=== PATIENT | male | born 1985 | race American Indian/Alaskan Native ===

== ENCOUNTER 2019-08-25 11:16 | Emergency (ER) | payer OTHER ==
[~2019-08-25] VITALS: Ht 185.4 cm; Wt 117.9 kg
--- OUTSIDE RECORDS SUMMARY | ~2019-08-25 | XMS | Encounter Summary ---
Demographics + + + | Address | [address] | | | [place] [address] | + + + | Home Phone | | + + + | Preferred Language | Unknown | + + + | Marital Status | Unknown | + + + | Congregational Affiliation | Unknown | + + + | Race | Unknown | + + + | Ethnic Group | Unknown | + + + Author + + + | Author | [facility] | | | and Mikaelana | + + + | Organization | [facility] | | | and Mikaelana | + + + | Address | Unknown | + + + | Phone | Unavailable | + + + Support +------+ + + + | Name | Relationship | Address | Phone | +------+ + + + | U U | ECON | [address] | | | | | [place] | | | | | [address] | | +------+ + + + | U U | ECON | NA | | | | | NA, NA | | +------+ + + + Care Team Providers + +------+ + | Care Registered Nurse Ambulatory Name | Role | Phone | + +------+ + PCP | Unavailable | + +------+ + Encounter Details +--------+ + + + + | Date | Type | Department | Care Team | Description | +--------+ + + + + | 06/19/ | Abstract | [facility] | Solano, Kyle | | | 2011 | | NEUROSURGERY [address] | [address] | | | | | [address] | [address] [place] | | | | | [place], [place] | [address] | | | | | [address] | [phone] | | | | | [phone] | | | +--------+ + + + + Social History + +-------+ +--------+------+ | Tobacco Use | Types | Packs/Day | Years | Date | | | | | Used | | + +-------+ +--------+------+ | Current Some Day | | 1.5 | 17 | | | Smoker | | | | | + +-------+ +--------+------+ + +---+---+---+ | Smokeless Tobacco: | | | | | Never Used | | | | + +---+---+---+ + + +---------+ + | Alcohol Use | Drinks/Week | oz/Week | Comments | + + +---------+ + | Yes | | | moderately | + + +---------+ + + + + | Sex Assigned at | Date Recorded | | | | + + + | Not on file | | + + + + + + + | Job Start Date | Occupation | Industry | + + + + | Not on file | Not on file | Not on file | + + + + + + + + | Travel History | Travel Start | Travel End | + + + + + + | No recent travel history available. | + + documented as of this encounter Plan of Treatment Not on filedocumented as of this encounter Visit Diagnoses Not on filedocumented in this encounter"
--- OUTSIDE RECORDS SUMMARY | ~2019-08-25 | XMS | Encounter Summary ---
Demographics + + + | Address | [address] | | | [place] [address] | + + + | Home Phone | | + + + | Preferred Language | Unknown | + + + | Marital Status | Unknown | + + + | Lutheran Affiliation | Unknown | + + + | Race | Unknown | + + + | Ethnic Group | Unknown | + + + Author + + + | Author | [facility] | | | and Mikaelana | + + + | Organization | [facility] | | | and Mikaelana | [...] [place] | | | | | [address] | | +------+ + + + | U U | ECON | NA | | | | | NA, NA | | +------+ + + + Care Team Providers + +------+ + | Care Manager Culinary Name | Role | Phone | + +------+ + | Denton Parker PA-C | PCP | | + +------+ + Reason for Visit +--------+ + | Reason | Comments | +--------+ + | Other | OXYCODONE REFILL | +--------+ + Encounter Details +--------+ + + + + | Date | Type | Department | Care Team | Description | +--------+ + + + + | 06/29/ | Telephone | [facility] | Kyle Solano | Other (OXYCODONE | | 2011 | | [address] | MD Geeta [address] | REFILL) | | | | [address] | [place] | | | | | [place] | [address] | | | | | [address] | [phone] | | | | | [phone] | | | +--------+ + + + [...] filedocumented as of this encounter Visit Diagnoses + + | Diagnosis | + + | S/P carpal tunnel release - Primary Other postprocedural status | + + documented in this encounter"
--- OUTSIDE RECORDS SUMMARY | ~2019-08-25 | XMS | Encounter Summary ---
Demographics + + + | Address | [address] | | | [place] [address] | + + + | Home Phone | | + + + | Preferred Language | Unknown | + + + | Marital Status | Unknown | + + + | Jew Affiliation | Unknown | + + + | Race | Unknown | + + + | Ethnic Group | Unknown | + + + Author + + + | Author | [facility] | | | and Mikaelana | + + + | Organization | [facility] | | | and Mikaelana | [...] [place] | | | | | [address] | | +------+ + + + | U U | ECON | NA | | | | | NA, NA | | +------+ + + + Care Team Providers + +------+ + | Care Cd Reactor Operator Name | Role | Phone | + +------+ + | Denton Parker PA-C | PCP | | + +------+ + Reason for Visit + + + | Reason | Comments | + + + | Medication Refill | | + + + Encounter Details +--------+--------+ + + + | Date | Type | Department | Care Team | Description | +--------+--------+ + + + | 07/07/ | Refill | [facility] [place] | Julian Pina | Medication Refill | | 2011 | | NEUROSURGERY [address] | | | | | [address] | | | | | | [place] | | | | | | [address] | | | | | | [phone] | | | +--------+--------+ + + + Social History + +-------+ [...]
--- OUTSIDE RECORDS SUMMARY | ~2019-08-25 | XMS | Encounter Summary ---
Demographics + + + | Address | [address] | | | [place] [address] | + + + | Home Phone | | + + + | Preferred Language | Unknown | + + + | Marital Status | Unknown | + + + | Episcopal Affiliation | Unknown | + + + | Race | Unknown | + + + | Ethnic Group | Unknown | + + + Author + + + | Author | [facility] | | | and Mikaelana | + + + | Organization | [facility] | | | and Mikaelana | [...] [place] | | | | | [address] | | +------+ + + + | U U | ECON | NA | | | | | NA, NA | | +------+ + + + Care Team Providers + +------+ + | Care Bank Compliance Officer Name | Role | Phone | + +------+ + | Denton Parker PA-C | PCP | | + +------+ + Reason for Visit + + + | Reason | Comments | + + + | Wound Check | Suture removal | + + + Encounter Details +--------+ + + + + | Date | Type | Department | Care Team | Description | +--------+ + + + + | 07/07/ | Clinical | [facility] [place] | | S/P carpal tunnel | | 2011 | Support | NEUROSURGERY [address] | | release (Primary Dx) | | | | [address] | | | | | | [place] | | | | | | [address] | | | | | | [phone] | | | +--------+ + + + [...] + + documented as of this encounter Progress Notes Julian Pina - 07/07/2012 9:06 AM PDT Neurosurgery Postoperative Wound Check/Nurse Visit Wound Information: Location: Right Hand Photo Attached: no Wound Type: Surgical Incison Wound Size: Wound Bed: WNL Wound Edges: Well approximated Drainage (Amount): no Drainage (Color): no Odor: no Treatment/Dressing: Steri-strips and Coban Lab Orders: no Clinical/Plan: Pain (0-10): 0 Pain Management: Percocet 5/325 Effective Pain Mgmt: yes Refill Needed: yes Notes: No complaints of pain to right hand. Complained of discomfort to left hand, request ed pain medication. Six sutures removed to right hand and steri-strips applied. Patient ad vised to do exercise instruction sheet to help relieve the stiffness associated with the wm justine. Incision to hand slightly swollen, and patient complained of "stiffness to area". Therapy Plans: X-Rays: Plan/Follow-Up: Will call patient for follow-up documented in this en counter Plan of Treatment Not on filedocumented as of this encounter Visit Diagnoses + + | Diagnosis | + + | S/P carpal tunnel release - Primary Other postprocedural status | + + documented in this encounter
--- OUTSIDE RECORDS SUMMARY | ~2019-08-25 | XMS | Clinical Summary ---
Demographics + + + | Address | [address] | | | [place] [address] | + + + | Home Phone | | + + + | Preferred Language | Unknown | + + + | Marital Status | Unknown | + + + | Roman Catholic Affiliation | Unknown | + + + | Race | Unknown | + + + | Ethnic Group | Unknown | + + + Author + + + | Author | [facility] | | | and Mikaelana | + + + | Organization | [facility] | | | and Mikaelana [...] [place] | | | | | [address] | | +------+ + + + | U U | ECON | NA | | | | | NA, NA | | +------+ + + + Care Team Providers + +------+ + | Care Gaming Worker Name | Role | Phone | + +------+ + | Denton Parker PA-C | PCP | | + +------+ + Allergies + + + + + + | Active Allergy | Reactions | Severity | Noted | Comments | | | | | Date | | + + + + + + | Bee Venom | Anaphylaxis | High | 06/19/20 | | | | | | 12 | | + + + + + + Medications No known medications Active Problems + + + | Problem | Noted Date | + + + | S/P carpal tunnel release | 09/24/2012 | + + + | CARPAL TUNNEL SYNDROME | | + + + Social History + +-------+ [...] recent travel history available. | + + Last Filed Vital Signs + + + + + | Vital Sign | Reading | Time Taken | Comments | + + + + + | Blood Pressure | 148/103 | 08/21/2012 7:56 AM | | | | | PST | | + + + + + | Pulse | 75 | 08/21/2012 7:56 AM | | | | | PST | | + + + + + | Temperature | - | - | | + + + + + | Respiratory Rate | 18 | 08/21/2012 7:56 AM | | | | | PST | | + + + + + | Oxygen Saturation | - | - | | + + + + + | Inhaled Oxygen | - | - | | | Concentration | | | | + + + + + | Weight | 135.6 kg (299 lb) | 08/21/2012 7:56 AM | | | | | PST | | + + + + + | Height | 188 cm (6' 2.02") | 08/21/2012 7:56 AM | | | | | PST | | + + + + + | Body Mass Index | 38.37 | 08/21/2012 7:56 AM | | | | | PST | | + + + + + Plan of Treatment + + + + + | Health Maintenance | Due Date | Last Done | Comments | + + + + + | Vaccine: | | | | | Dtap/Tdap/Td (1 - | 2 | | | | Tdap) | | | | + + + + + | Vaccine: Influenza | | | | | (#1) | 9 | | | + + + + + Results Not on filefrom Last 3 Months Insurance + +--------+ +--------+ +---------+--------+ | Payer | Benefi | Subscriber | Effect | Phone | Address | Type | | | t Plan | ID | param | | | | | | / | | Dates | | | | | | Group | | | | | | + +--------+ +--------+ +---------+--------+ | [employer] | MODA | [id number] | | [phone] | | Medica | | MEDICAID HMO | HEALTH | | 015-Pr | 1 | | id | | | MDCD | | esent | | | | | | HMO OR | | | | | | + +--------+ +--------+ +---------+--------+ | HEALTH | IHS | [id number] | | | | Indemn | | SERVICE | YELLOW | | 012-Pr | | | ity | | | HAWK | | esent | | | | + +--------+ +--------+ +---------+--------+ + +--------+ +--------+ + + | Guarantor Name | Accoun | Relation to | Date | Phone | Billing Address | | | t Type | Patient | of | | | | | | | | | | + +--------+ +--------+ + + | Gilberto Weeks | Person | Self | [birth year] | [address] | | | [place] | | 1985 | [phone] | [place] | | | [place] | | | [address] (Home) | [address] | + +--------+ +--------+ + + Advance Directives + + + + + | Type | Date Recorded | Patient | Explanation | | | | Field Artillery Fire Control Man | | + + + + + | Power of | | | | | Egg Worker | | | | + + + + + | Advance | | | | | Directive | | | | + + + + +
--- OUTSIDE RECORDS SUMMARY | ~2019-08-25 | XMS | Encounter Summary ---
Demographics + + + | Address | [address] | | | [place] [address] | + + + | Home Phone | | + + + | Preferred Language | Unknown | + + + | Marital Status | Unknown | + + + | Denominational Affiliation | Unknown | + + + | Race | Unknown | + + + | Ethnic Group | Unknown | + + + Author + + + | Author | [facility] | | | and Mikaelana | + + + | Organization | [facility] | | | and Mikaelana [...] [place] | | | | | [address] | | +------+ + + + | U U | ECON | NA | | | | | NA, NA | | +------+ + + + Care Team Providers + +------+ + | Care Cell Phone Repair Technician Name | Role | Phone | + +------+ + | Denton Parker PA-C | PCP | | + +------+ + Reason for Visit + + + | Reason | Comments | + + + | Wound Check | | + + + Encounter Details +--------+---------+ + + + | Date | Type | Department | Care Team | Description | +--------+---------+ + + + | 07/24/ | Office | [facility] | Kyle Solano | S/P carpal tunnel | | 2011 | Visit | [address] | MD Geeta [address] | release (Primary | | | | [address] | St [place] | Dx); Postoperative | | | | [place] | [address] | stitch abscess | | | | [address] | [phone] | | | | | [phone] | | | +--------+---------+ + + + Social History + +-------+ [...] + + documented as of this encounter Last Filed Vital Signs + + + + + | Vital Sign | Reading | Time Taken | Comments | + + + + + | Blood Pressure | 128/83 | 07/24/2012 12:27 PM | | | | | PDT | | + + + + + | Pulse | 88 | 07/24/2012 12:27 PM | | | | | PDT | | + + + + + | Temperature | - | - | | + + + + + | Respiratory Rate | 16 | 07/24/2012 12:27 PM | | | | | PDT | | + + + + + | Oxygen Saturation | - | - | | + + + + + | Inhaled Oxygen | - | - | | | Concentration | | | | + + + + + | Weight | 135.6 kg (299 lb) | 07/24/2012 12:27 PM | | | | | PDT | | + + + + + | Height | 188 cm (6' 2.02") | 07/24/2012 12:27 PM | | | | | PDT | | + + + + + | Body Mass Index | 38.37 | 07/24/2012 12:27 PM | | | | | PDT | | + + + + + documented in this encounter Patient Instructions Patient Instructions Kyle Solano MD - 07/24/2012 12:56 PM PDTChange dressings twi ce per day. Call if symptoms not resolved within one week. documented in this encounter Progress Notes Kyle Solano MD - 07/24/2012 12:58 PM PDTFormatting of this note might be differen t from the original. Kyle Solano MD [address] [place] [address], [address] [place], [place] [id number] FAX: NEUROSURGERY SURGICAL FOLLOW-UP CHIEF COMPLAINT: Chief Complaint Patient presents with Wound Check HISTORY OF PRESENT ILLNESS: The patient is a 27 y.o. male that had a right carpel tunnel r elease by me for median nerve entrapment around 3 weeks ago. He returns and overall is doi ng fairly well. The patient complains of a firm painful nodule at the distal edge of the in cision. The patient has not been following their restrictions overall. The patient has had some issues with his surgical site. He reports no drainage or fever, but has had pain and the swelling. CURRENT MEDICATIONS: No current outpatient prescriptions on file prior to visit. ALLERGIES: Allergies Allergen Reactions Bee Venom Anaphylaxis SOCIAL HISTORY: The patient reports that he has been smoking. He has never used smokeless tobacco. He rep orts that he drinks alcohol. He reports that he does not use illicit drugs. INTERIM PHYSICAL EXAMINATION: Blood pressure 128/83, pulse 88, resp. rate 16, height 1.88 m (6' 2.02"), weight 135.626 kg (299 lb). Body mass index is 38.37 kg/(m^2). GENERAL: Gilberto Weeks is in no acute distress with unlabored respirations. HEENT: HEAD/FACE: Normocephalic and atraumatic. There are no areas of recent trauma. EXTREMITIES: The patien's incision shows no evidence of erythema or discharge. It appears to be healing well. The sutures were removed about two weeks ago. NEUROLOGICAL EXAMINATION: MENTAL STATUS: The patient is awake, alert, and oriented. He follows simple and complex commands MOTOR EXAM: Motor strength is improved from the preoperative exam. SENSORY EXAM: The sensory examination improved from the preoperative exam. ASSESSMENT: S/P Carpal Tunnel Release for: Encounter Diagnoses Name Primary? S/P carpal tunnel release Yes Postoperative stitch abscess History reviewed. No pertinent past medical history. PLAN: Overall, the patient is doing fairly well. However he does appear to have a stitch absces s. I lanced the abscess but was not able to express the stitch. I will place him on septra ds and instructed him to perform bid dressing changes. 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 Hopefully, there will be further improvem ent over time. I increased the patient s activities today allowing 15 pound lifting. I w lamonteld like the patient to advance slowly and continue to care for their hand incision with th is process and discussed this at length. I spent 30 minutes in visit with Gilberto Ayalaconnie today with the majority of time spent co unselling the patient on his recovery. ELECTRONICALLY SIGNED BY: Kyle Solano MD, 07/24/2012 12:59 documented in is encounter Plan of Treatment Not on filedocumented as of this encounter Visit Diagnoses + + | Diagnosis | + + | S/P carpal tunnel release - Primary Other postprocedural status | + + | Postoperative stitch abscess Other postoperative infection | + + documented in this encounter
--- OUTSIDE RECORDS SUMMARY | ~2019-08-25 | XMS | Clinical Summary ---
Demographics + + + | Address | [address] | | | [place] [address] | + + + | Home Phone | | + + + | Preferred Language | Unknown | + + + | Marital Status | Unknown | + + + | Religion Affiliation | Unknown | + + + | Race | Unknown | + + + | Ethnic Group | Unknown | + + + Author + + + | Author | [facility] | | | and Mikaelana | + + + | Organization | [facility] | | | and Mikaelana [...] [place] | | | | | [address] | | +------+ + + + | U U | ECON | NA | | | | | NA, NA | | +------+ + + + Care Team Providers + +------+ + | Care Setter Up Name | Role | Phone | + [...] | [employer] | MODA | [id number] | | [phone] | | Medica | | MEDICAID HMO | HEALTH | | 015-Pr | 1 | | id | | | MDCD | | esent | | | | | | HMO OR | | | | | | + +--------+ +--------+ +---------+--------+ | HEALTH | IHS | [id number] | | | | Indemn | | [...] | | al/[place] | | 1985 | [phone] | [place] | | | [place] | | | [address] (Home) | [address] | + +--------+ +--------+ + + Advance Directives + + + + + | Type | Date Recorded | Patient | Explanation | | | | Senior Research Analyst | | + + + + + | Power of | | | | | Entertainment Manager | | | | + + + + + | Advance | | | | | Directive | | | | + + + + +
--- OUTSIDE RECORDS SUMMARY | ~2019-08-25 | XMS | Encounter Summary ---
Demographics + + + | Address | [address] | | | [place] [address] | + + + | Home Phone | | + + + | Preferred Language | Unknown | + + + | Marital Status | Unknown | + + + | Christianity Affiliation | Unknown | + + + | Race | Unknown | + + + | Ethnic Group | Unknown | + + + Author + + + | Author | [facility] | | | and Mikaelana | + + + | Organization | [facility] | | | and Mikaelana | + + + | Address | Unknown | + + + | Phone | Unavailable | + + + Support +------+ + + + | Name | Relationship | Address | Phone | +------+ + + + | U U | ECON | [address] | | | | | [place] | | | | | [address] | | +------+ + + + | U U | ECON | NA | | | | | NA, NA | | +------+ + + + Care Team Providers + +------+ + | Care Lung Splitter Name | Role | Phone | + +------+ + PCP | Unavailable | + +------+ + Encounter Details +--------+ + + + + | Date | Type | Department | Care Team | Description | +--------+ + + + + | 06/18/ | Hospital | [facility] | Kyle Solano | | | 2011 | Encounter | MED CTR MP INTRA OP | MD [address]eta [address] | | | | | [address] | [address] [place], [place] | | | | | [place], [place] | [address] | | | | | [address] | [phone] | | | | | [phone] | | | +--------+ + + + + Social History + +-------+ +--------+------+ | Tobacco Use | Types | Packs/Day | Years | Date | | | | | Used | | + +-------+ +--------+------+ | Never Assessed | | | | | + +-------+ +--------+------+ + + + | Sex Assigned at [...]
--- OUTSIDE RECORDS SUMMARY | ~2019-08-25 | XMS | Encounter Summary ---
Demographics + + + | Address | [address] | | | [place] [address] | + + + | Home Phone | | + + + | Preferred Language | Unknown | + + + | Marital Status | Unknown | + + + | Zoroastrianism Affiliation | Unknown | + + + | Race | Unknown | + + + | Ethnic Group | Unknown | + + + Author + + + | Author | [facility] | | | and Mikaelana | + + + | Organization | [facility] | | | and [...] [place] | | | | | [address] | | +------+ + + + | U U | ECON | NA | | | | | NA, NA | | +------+ + + + Care Team Providers + +------+ + | Care Residential Installer Name | Role | Phone | + +------+ + PCP | Unavailable | + +------+ + Encounter Details +--------+ + + + + | Date | Type | Department | Care Team | Description | +--------+ + + + + | 06/04/ | Abstract | [facility] | DATA MIGRATION TIM | | | 2011 | | Conversion Location | SR | | | | | [phone] | | | +--------+ + + + [...]
--- OUTSIDE RECORDS SUMMARY | ~2019-08-25 | XMS | Encounter Summary ---
Demographics + + + | Address | [address] | | | [place] [address] | + + + | Home Phone | | + + + | Preferred Language | Unknown | + + + | Marital Status | Unknown | + + + | Confucianism Affiliation | Unknown | + + + | Race | Unknown | + + + | Ethnic Group | Unknown | + + + Author + + + | Author | [facility] | | | and Mikaelana | + + + | Organization | [facility] | | | and Mikaelana [...] [place] | | | | | [address] | | +------+ + + + | U U | ECON | NA | | | | | NA, NA | | +------+ + + + Care Team Providers + +------+ + | Care Engine Manager Name | Role | Phone | + [...] NEUROSUR[address]ERY [address] | [address] | | | | | [address] | [address] [place] | | | | | [place], [place] | [address] | | | | | [phone] | [phone] | | | | | [phone] | | | +--------+ + + + [...]
--- OUTSIDE RECORDS SUMMARY | ~2019-08-25 | XMS | Encounter Summary ---
Demographics + + + | Address | [address] | | | [place] [address] | + + + | Home Phone | | + + + | Preferred Language | Unknown | + + + | Marital Status | Unknown | + + + | Adventism Affiliation | Unknown | + + + | Race | Unknown | + + + | Ethnic Group | Unknown | + + + Author + + + | Author | [facility] | | | and Mikaelana | + + + | Organization | [facility] | | | and Mikaelana [...] [place] | | | | | [address] | | +------+ + + + | U U | ECON | NA | | | | | NA, NA | | +------+ + + + Care Team Providers + +------+ + | Care Tobacco Classer Name | Role | Phone | + [...] + + | 06/29/ | Telephone | [facility] | Kyle Solano | Other (OXYCODONE | | 2011 | | [address] | MD Geeta [address] | REFILL) | | | | [address] | [place] | | | | | [place] | [address] | | | | | [address] | [phone] | | | | | [phone] | | | +--------+ + + + [...]
--- OUTSIDE RECORDS SUMMARY | ~2019-08-25 | XMS | Encounter Summary ---
Demographics + + + | Address | [address] | | | [place] [address] | + + + | Home Phone | | + + + | Preferred Language | Unknown | + + + | Marital Status | Unknown | + + + | Orthodoxy Affiliation | Unknown | + + + | Race | Unknown | + + + | Ethnic Group | Unknown | + + + Author + + + | Author | [facility] | | | and Mikaelana | + + + | Organization | [facility] | | | and Mikaelana [...] [place] | | | | | [address] | | +------+ + + + | U U | ECON | NA | | | | | NA, NA | | +------+ + + + Care Team Providers + +------+ + | Care Supervisor Industrial Garment Name | Role | Phone | + [...] | SR | | | | | [phone] | | | +--------+ + + + [...]
--- OUTSIDE RECORDS SUMMARY | ~2019-08-25 | XMS | Encounter Summary ---
Demographics + + + | Address | [address] | | | [place] [address] | + + + | Home Phone | | + + + | Preferred Language | Unknown | + + + | Marital Status | Unknown | + + + | Pentecostalism Affiliation | Unknown | + + + | Race | Unknown | + + + | Ethnic Group | Unknown | + + + Author + + + | Author | [facility] | | | and Mikaelana | + + + | Organization | [facility] | | | and Mikaelana [...] [place] | | | | | [address] | | +------+ + + + | U U | ECON | NA | | | | | NA, NA | | +------+ + + + Care Team Providers + +------+ + | Care Distribution Collection Operator Name | Role | Phone | [...] | | | | | [place] | | | | | | [address] | | | | | | [phone] | | | +--------+ + + + [...]
--- OUTSIDE RECORDS SUMMARY | ~2019-08-25 | XMS | Encounter Summary ---
Demographics + + + | Address | [address] | | | [place] [address] | + + + | Home Phone | | + + + | Preferred Language | Unknown | + + + | Marital Status | Unknown | + + + | Anabaptism Affiliation | Unknown | + + + | Race | Unknown | + + + | Ethnic Group | Unknown | + + + Author + + + | Author | [facility] | | | and Mikaelana | + + + | Organization | [facility] | | | and [...] [place] | | | | | [address] | | +------+ + + + | U U | ECON | NA | | | | | NA, NA | | +------+ + + + Care Team Providers + +------+ + | Care Fluoroscope Operator Name | Role | Phone | [...] Description | +--------+--------+ + + + | 07/09/ | Refill | [facility] [place] | Kyle Solano | Medication Refill | | 2011 | | [address] | [address] | | | | | [address] | [place], [place] | | | | | [place], [place] | [address] | | | | | [address] | [phone] | | | | | [phone] | | | +--------+--------+ + + + [...]
--- OUTSIDE RECORDS SUMMARY | ~2019-08-25 | XMS | Encounter Summary ---
Demographics + + + | Address | [address] | | | [place] [address] | + + + | Home Phone | | + + + | Preferred Language | Unknown | + + + | Marital Status | Unknown | + + + | Congregational Affiliation | Unknown | + + + | Race | Unknown | + + + | Ethnic Group | Unknown | + + + Author + + + | Author | and [facility] | | | and Mikaelana | + + + | Organization | and [facility] | | | and [...] [place] | | | | | [address] | | +------+ + + + | U U | ECON | NA | | | | | NA, NA | | +------+ + + + Care Team Providers + +------+ + | Care Passenger Interline Clerk Name | Role | Phone | + +------+ + | Denton Parker PA-C | PCP | | + +------+ + Reason for Visit +--------+ + | Reason | Comments | +--------+ + | Other | post op update | +--------+ + Encounter Details +--------+ + + + + | Date | Type | Department | Care Team | Description | +--------+ + + + + | 01/11/ | Telephone | [facility] [place] | Kyle Solano | Other (post op | | 2013 | | [address] | [address] | update ) | | | | [address] | St [place], [place] | | | | | [place], [place] | [address] | | | | | [address] | [phone] | | | | | [phone] | | | +--------+ + + + [...]
--- OUTSIDE RECORDS SUMMARY | ~2019-08-25 | XMS | Encounter Summary ---
Demographics + + + | Address | [address] | | | [place] [address] | + + + | Home Phone | | + + + | Preferred Language | Unknown | + + + | Marital Status | Unknown | + + + | Yazdanism Affiliation | Unknown | + + + | Race | Unknown | + + + | Ethnic Group | Unknown | + + + Author + + + | Author | [facility] | | | and Mikaelana | + + + | Organization | [facility] | | | and [place]aelana [...] [place] | | | | | [address] | | +------+ + + + | U U | ECON | NA | | | | | NA, NA | | +------+ + + + Care Team Providers + +------+ + | Care Advanced Clinical Specialist Name | Role | Phone | + [...] [place] | | | | | | [address] | | | | | | [phone] | | | +--------+--------+ + + + [...]
--- OUTSIDE RECORDS SUMMARY | ~2019-08-25 | XMS | Encounter Summary ---
Demographics + + + | Address | [address] | | | [place] [address] | + + + | Home Phone | | + + + | Preferred Language | Unknown | + + + | Marital Status | Unknown | + + + | Jewish Affiliation | Unknown | + + + | Race | Unknown | + + + | Ethnic Group | Unknown | + + + Author + + + | Author | [facility] | | | and Mikaelana | + + + | Organization | [facility] | | | and [...] [place] | | | | | [address] | | +------+ + + + | U U | ECON | NA | | | | | NA, NA | | +------+ + + + Care Team Providers + +------+ + | Care Talent Consultant Name | Role | Phone | + +------+ + PCP | Unavailable | + +------+ + Encounter Details +--------+ + + + + | Date | Type | Department | Care Team | Description | +--------+ + + + + | 06/18/ | Hospital | [facility] | Kyle Solano | | | 2011 | Encounter | MED CTR MP INTRA OP | MD Geeta [address] | | | | | [address] | [address] [place], [place] | | | | | [place], [place] | [address] | | | | | [address] | [phone] | | | | | [phone] | | | +--------+ + + + [...]
--- OUTSIDE RECORDS SUMMARY | ~2019-08-25 | XMS | Encounter Summary ---
Demographics + + + | Address | [address] | | | [place] [address] | + + + | Home Phone | | + + + | Preferred Language | Unknown | + + + | Marital Status | Unknown | + + + | Taoism Affiliation | Unknown | + + + | Race | Unknown | + + + | Ethnic Group | Unknown | + + + Author + + + | Author | [facility] | | | and Mikaelana | + + + | Organization | [facility] | | | and Mikaelana | [...] [place] | | | | | [address] | | +------+ + + + | U U | ECON | NA | | | | | NA, NA | | +------+ + + + Care Team Providers + +------+ + | Care Bar Catcher Name | Role | Phone | + +------+ + | Denton Parker PA-C | PCP | | + +------+ + Reason for Visit + + + | Reason | Comments | + + + | Follow-up | | + + + Encounter Details +--------+---------+ + + + | Date | Type | Department | Care Team | Description | +--------+---------+ + + + | 08/21/ | Office | [facility] | Kyle Solano | S/P carpal tunnel | | 2011 | Visit | [address] | MD Geeta [address] | release (Primary Dx) | | | | [address] | [place], [place] | | | | | [place] | [address] | | | | | [address] | [phone] | | | | | [phone] | | | +--------+---------+ + + + [...] + + + documented in this encounter Progress Notes Kyle Solano MD - 09/24/2012 6:27 PM PSTFormatting of this note might be differen t from the original. Kyle Solano MD [address] [place] [address], [address] [place], [place] [id number] FAX: NEUROSURGERY SURGICAL FOLLOW-UP CHIEF COMPLAINT: Chief Complaint Patient presents with Follow-up HISTORY OF PRESENT ILLNESS: The patient is a 27 y.o. male that had a carpal tunnel release around 8 weeks ago. He returns and overall is doing well. The patient complains of persis tent symptoms in the left hand. The patient has been following their restrictions overall. The patient has had no issues with his surgical site. Generally he is doing well. He woul d like to go back to work and apparently has been offered a very lucrative position. CURRENT MEDICATIONS: Current Outpatient Prescriptions Medication Sig Dispense Refill oxyCODONE-acetaminophen (PERCOCET) 5-325 mg per tablet Take 1-2 tablets by mouth every 4 hours as needed for Pain. 30 tablet 0 ALLERGIES: Allergies Allergen Reactions Bee Venom Anaphylaxis SOCIAL HISTORY: The patient reports that he has been smoking. He has never used smokeless tobacco. He rep orts that he drinks alcohol. He reports that he does not use illicit drugs. INTERIM PHYSICAL EXAMINATION: Blood pressure 148/103, pulse 75, resp. rate 18, height 1.88 m (6' 2.02"), weight 135.626 k g (299 lb). Body mass index is 38.37 kg/(m^2). GENERAL: Gilberto Weeks is in no acute distress with unlabored respirations. HEENT: HEAD/FACE: Normocephalic and atraumatic. There are no areas of recent trauma. EXTREMITIES: The patien's incision shows no evidence of erythema or discharge. It appears to be healing well. The sutures were removed previously. NEUROLOGICAL EXAMINATION: MENTAL STATUS: The patient is awake, alert, and oriented. He follows simple and complex commands MOTOR EXAM: Motor strength is improved and nearly full-strength. This is improved from the preoperative exam. SENSORY EXAM: The sensory examination improved from the preoperative exam. ASSESSMENT: S/P Carpal Tunnel Release: Encounter Diagnosis Name Primary? S/P carpal tunnel release Yes No past medical history on file. PLAN: Overall, the patient is doing well. 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 Hope fully, there will be further improvement over time. I increased the patient s activities today allowing 15 pound lifting. I would like the patient to advance slowly and continue to care for their hand incision with this process and discussed this at length. So far, things are healing as expected. At this time he like to take some additional time before he pursues treatment for his left hand. I agree that this is very reasonable course of action. He is aware of the issues and symptoms and signs. He'll contact us when he woul d like to consider treatment for the left hand. I spent 20 minutes in visit with Gilberto Weeks today with the majority of time spent co unselling the patient on his recovery. ELECTRONICALLY SIGNED BY: Kyle Solano MD, 09/24/2012 18:27 documented in th is encounter Plan of Treatment Not on filedocumented as of this encounter Visit Diagnoses + + | Diagnosis | + + | S/P carpal tunnel release - Primary Other postprocedural status | + + documented in this encounter
--- OUTSIDE RECORDS SUMMARY | ~2019-08-25 | XMS | Encounter Summary ---
Demographics + + + | Address | [address] | | | [place] [address] | + + + | Home Phone | | + + + | Preferred Language | Unknown | + + + | Marital Status | Unknown | + + + | Mormon Affiliation | Unknown | + + + | Race | Unknown | + + + | Ethnic Group | Unknown | + + + Author + + + | Author | [facility] | | | and Mikaelana | + + + | Organization | [facility] | | | and Mikaelana [...] [place] | | | | | [address] | | +------+ + + + | U U | ECON | NA | | | | | NA, NA | | +------+ + + + Care Team Providers + +------+ + | Care Ring Facer Name | Role | Phone | + [...] [address] | [address] | update ) | | | | [address] | St [place], [place] | | | | | [place], [place] | [address] | | | | | [address] | [phone] | | | | | [phone] | | | +--------+ + + + [...]
--- OUTSIDE RECORDS SUMMARY | ~2019-08-25 | XMS | Encounter Summary ---
Demographics + + + | Address | [address] | | | [place] [address] | + + + | Home Phone | | + + + | Preferred Language | Unknown | + + + | Marital Status | Unknown | + + + | Faith Affiliation | Unknown | + + + | Race | Unknown | + + + | Ethnic Group | Unknown | + + + Author + + + | Author | [facility] | | | and Mikaelana | + + + | Organization | [facility] | | | and Mikaelana [...] [place] | | | | | [address] | | +------+ + + + | U U | ECON | NA | | | | | NA, NA | | +------+ + + + Care Team Providers + +------+ + | Care Rehabilitation Services Director Name | Role | Phone | + [...] + + | 08/21/ | Office | [facility] | Kyle Solano | S/P carpal tunnel | | 2011 | Visit | [address] | MD Geeta [address] | release (Primary Dx) | | | | [address] | [place], [place] | | | | | [place] | [address] | | | | | [address] | [phone] | | | | | [phone] | | | +--------+---------+ + + + [...] t from the original. Kyle Solano MD [address] [place] [address], [address] [place], [place] [id number] FAX: NEUROSURGERY SURGICAL FOLLOW-UP CHIEF COMPLAINT: Chief [...] Overall, the patient is doing well. 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 Hope [...] I spent 20 minutes in visit with Gilberot Weeks today with the majority of time [...]
--- OUTSIDE RECORDS SUMMARY | ~2019-08-25 | XMS | Encounter Summary ---
Demographics + + + | Address | [address] | | | [place] [address] | + + + | Home Phone | | + + + | Preferred Language | Unknown | + + + | Marital Status | Unknown | + + + | Latter-Day Affiliation | Unknown | + + + | Race | Unknown | + + + | Ethnic Group | Unknown | + + + Author + + + | Author | [facility] | | | and Mikaelana | + + + | Organization | [facility] | [...] [place] | | | | | [address] | | +------+ + + + | U U | ECON | NA | | | | | NA, NA | | +------+ + + + Care Team Providers + +------+ + | Care Slubber Runner Name | Role | Phone | + [...] + | 07/24/ | Office | [facility] | Kyle Solano | S/P carpal tunnel | | 2011 | Visit | [address] | MD Geeta [address] | release (Primary | | | | [address] | [place] | Dx); Postoperative | | | | [place] | [address] | stitch abscess | | | | [address] | [phone] | | | | | [phone] | | | +--------+---------+ + + + [...] t from the original. Kyle Solano MD [address] [place] [address], [address] [place], [place] [id number] FAX: NEUROSURGERY SURGICAL FOLLOW-UP CHIEF COMPLAINT: Chief [...] him to perform bid dressing changes. 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 Hopefully, [...]
--- OUTSIDE RECORDS SUMMARY | ~2019-08-25 | XMS | Encounter Summary ---
Demographics + + + | Address | [address] | | | [place] [address] | + + + | Home Phone | | + + + | Preferred Language | Unknown | + + + | Marital Status | Unknown | + + + | Scientologist Affiliation | Unknown | + + + | Race | Unknown | + + + | Ethnic Group | Unknown | + + + Author + + + | Author | [facility] | | | and Mikaelana | + + + | Organization | [facility] | | | and [...] [place] | | | | | [address] | | +------+ + + + | U U | ECON | NA | | | | | NA, NA | | +------+ + + + Care Team Providers + +------+ + | Care Plastic Extruding Machine Operator Name | Role | Phone | [...] NEUROSURGERY [address] | [address] | | | | | [address] | [place], [place] | | | | | [place], [place] | [address] | | | | | [address] | [phone] | | | | | [phone] | | | +--------+--------+ + + + [...]
[2019-08-25] MEDS ORDERED: NORCO 5-325 TA1 EACH PO (18:49)
[2019-08-25] MEDS ORDERED: AUGMENTIN 875-1 EACH PO (18:49)
[2019-08-25] MEDS ORDERED: PREDNISONE20 MG PO (18:49)
== END 2019-08-25 19:26 | disposition home or self-care (01) ==
LOC: ED 11:16
DX: M10.9 Gout, unspecified (principal); J18.9 Pneumonia, unspecified organism; F17.200 Nicotine dependence, unspecified, uncomplicated; Z88.8 Allergy status to other drugs, medicaments and biological substances
CPT/HCPCS: 71046; 73560; 80053; 82945; 83605; 84157; 84550; 85025; 85032; 85651; 86140; 87502; 89051; 89060; 96374; 99283-25; 99406; J1100

== ENCOUNTER 2021-06-20 20:18 | Emergency (ER) | payer OTHER ==
[~2021-06-20 20:18] MED LIST: AUGMENTIN 875-1 EACH PO; NORCO 5-325 TA1 EACH PO; PREDNISONE20 MG PO
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
== END 2021-06-21 01:05 ==
LOC: ED 20:18 → EDBD 20:18 → ED 06-21 01:05
PROC: 0JH63XZ Insertion of Tunneled Vascular Access Device into Chest Subcutaneous Tissue and Fascia, Percutaneous Approach (ICD-10-PCS; principal; 2021-06-20)
DX: S21.312A Laceration without foreign body of left front wall of thorax with penetration into thoracic cavity, initial encounter (principal); I46.8 Cardiac arrest due to other underlying condition; W26.9XXA Contact with unspecified sharp object(s), initial encounter
CPT/HCPCS: 36430; 36556; 92950; 99285-25; J0171; J0282; P9016; P9059